=== PATIENT | female | born 1945 | race Caucasian/White ===

== ENCOUNTER → 2018-10-02 19:36 | Outpatient (REF) | payer MEDICARE, OTHER, SELFPAY ==
[2018-10-02 19:48] LABS: Add Manual Diff / Slide Review NO; Basophils Absolute Auto 0 /uL (0-100); Basophils Percent Auto 0.5 % (0-2); Eosinophils Absolute Auto 400 /uL (0-450); Eosinophils Percent Auto 6.5 % (2-4); Hematocrit 44.5 % (36-46); Hemoglobin 14.6 g/dL (12.0-16.0); Lymphocytes Absolute Auto 1500 /uL (1100-4500); Lymphocytes Percent Auto 25.3 % (25-40); Mean Corpuscular HGB Conc 32.8 % (30-36); Mean Corpuscular Hemoglobin 30.3 PG (26-34); Mean Corpuscular Volume 92.5 fL (80-100); Monocytes Absolute Auto 300 /uL (0-900); Monocytes Percent Auto 5.7 % (3-14); Neutrophils Absolute Auto 3800 /uL (1500-7000); Platelet Count 198 X10^3/uL (150-400); Red Blood Cell Count 4.81 X10^6/uL (4.0-5.2); Red Cell Distribution Width 14.1 % (11.6-14.8); White Blood Cell Count 6.1 X10^3/uL (4.5-11.0)
[2018-10-02 19:54] LABS: Alanine Aminotransferase 25 IU/L (9-52); Albumin 4.5 g/dL (3.5-5.0); Albumin Globulin Ratio 1.7 (1.0-2.8); Alkaline Phosphatase 49 U/L (38-126); Aspartate Aminotransferase 26 IU/L (14-36); BUN Creatinine Ratio 22.5 (6-22); Bilirubin Total 0.7 mg/dL (0.2-1.3); Blood Urea Nitrogen 18 mg/dL (7-17); Calcium 9.3 mg/dL (8.4-10.2); Carbon Dioxide 26 mmol/L (22-32); Chloride 104 mmol/L (98-107); Cholesterol 231 mg/dL (140-199); Estimated Glomerular Filt Rate > 60.0 mL/min (>60); Globulin 2.6 g/dL (1.7-4.1); Glucose 79 mg/dL (80-110); HDL Cholesterol 69 mg/dL (40-60); HEMOLYSIS < 15 (0-50); LDL Cholesterol Calculated 150 mg/dL (<100); Potassium 4.2 mmol/L (3.4-5.1); Sodium 139 mmol/L (137-145); Total Protein 7.1 g/dL (6.3-8.2); Triglycerides 60 mg/dL (35-150)
[2018-10-02 19:58] LABS: High Sensitivity CRP - Cardiac 1.1 mg/L (1.0-3.0)
[2018-10-02 20:34] LABS: Erythrocyte Sedimentation Rate 6 MM/HR (0-20)
== END ==
LOC: LAB 19:36
PROVIDERS: Family Provider Specialist; PCP Specialist; Visit Provider Family Medicine Geriatric Medicine
DX: R30.0 Dysuria (principal); I10 Essential (primary) hypertension; M19.90 Unspecified osteoarthritis, unspecified site
CPT/HCPCS: 36415; 80053; 80061; 85025; 85651; 86140

== ENCOUNTER → 2019-06-15 11:36 | Outpatient (CLI) | payer MEDICARE, OTHER, SELFPAY ==
--- NOTE | 2019-06-15 | DI.MG.S_ITS ---
BILATERAL DIGITAL SCREENING MAMMOGRAM 3D/2D WITH CAD: 06/15/2019 CLINICAL: Routine screening. Comparison is made to exams dated: 01/15/2017 mammogram, 03/05/2013 mammogram, and 09/24/2011 mammogram - [facility]. The tissue of both breasts is extremely dense, which lowers the sensitivity of mammography. Current study was also evaluated with a Computer Aided Detection (CAD) system. There are benign calcifications in both breasts. No significant masses, calcifications, or other findings are seen in either breast. There has been no significant interval change. IMPRESSION: There is no mammographic evidence of malignancy. A 1 year screening mammogram is recommended. This exam was interpreted at Station ID: [id number]. NOTE: For mammograms, a report in lay terms will be sent to the patient. Approximately 15% of breast malignancies will not be visualized mammographically. In the management of a palpable breast mass, a negative mammogram must not discourage biopsy of a clinically suspicious lesion. Electronically Signed By: Axel garcia/jacklyn:06/16/2019 08:15:08 letter sent: Normal Exam ACR BI-RADS Category 2: Benign Finding(s) 3342F
== END ==
PROVIDERS: PCP Family Medicine Geriatric Medicine; Visit Provider Family Medicine Geriatric Medicine
DX: Z12.31 Encounter for screening mammogram for malignant neoplasm of breast (principal)
CPT/HCPCS: 77063; 77067

== ENCOUNTER 2019-08-03 10:14 | Day surgery (SDC) | payer MEDICARE, OTHER, SELFPAY ==
[2019-07-21 09:52] VITALS: BMI 24.7
[2019-08-03] VITALS (13 sets, daily range): BP systolic 95–183; BP diastolic 49–88; PULSE 44–76; RESP 10–22; TEMP 36.4–36.9; O2SAT 93–99; BMI 24.7
--- NOTE | 2019-08-03 06:00 | DI.RAD.S_ITS ---
PROCEDURE: XR KNEE LT 1TO2V INDICATIONS: post op TECHNIQUE: 2 view(s) of the knee acquired. COMPARISON: None. FINDINGS: Bones: Patient is status post knee joint arthroplasty. Hardware components are in expected positions. Visualized bony structures are intact. Soft tissues: Overlying postoperative changes are noted. IMPRESSION: Left knee prosthesis in anatomic alignment. Dictated by: Sherron Sams M.D. on 08/03/2019 at 15:42 Approved by: Sherron Sams M.D. on 08/03/2019 at 15:43
[2019-08-03] MEDS: ACETAMINOPHEN 325 MG TABLET 975 MG PO (11:22)
[2019-08-03] MEDS: PREGABALIN 75 MG CAPSULE PO (11:22)
[2019-08-03] MEDS: LACTATED RINGERS 1,000 ML 42 ML IV ×2 (11:41→14:45)
--- NOTE | 2019-08-03 12:09 | PM.PREOP ---
Pre-operative Note Interval Note History & Physical reviewed/Exam performed by Physician: Yes Changes to H&P: No
[2019-08-03] MEDS: MELOXICAM 7.5 MG TABLET 15 MG PO (12:20)
[2019-08-03] MEDS: CEFAZOLIN 2 GM/100 ML FROZ.PIGGY IV (12:59)
[2019-08-03] MEDS: BUPIVACAINE LIPOSOME 266 MG/20 ML VIAL INJ (13:36)
[2019-08-03] MEDS: BUPIVACAINE 0.25% W/ EPI (PF) 10 ML VIAL 60 ML INJ (13:38)
[2019-08-03] MEDS: MORPHINE 4 MG/ML INJ INJ (13:38)
--- NOTE | 2019-08-03 13:49 | SUR.OPER ---
Supine on padded OR bed. Pillow under head, arms secured on padded armboards <90 degree abduction. Safety belt across torso. Non-operative leg secured with tape over blanket over lower leg. Operative leg secured in [employer] positioner.
[2019-08-03] MEDS: TRANEXAMIC ACID 1,000 MG VIAL 1000 MG INJ ×2 (13:55→14:41)
--- NOTE | 2019-08-03 15:09 | PM.OP.1 ---
Operative Date/Time/Diagnoses Date of procedure: 08/03/19 Time of procedure: 14:30 Pre-op diagnosis: Left knee osteoarthritis Post-op diagnosis: same Procedure & Clinicians Procedure: Left total knee replacement Same procedure as scheduled: Yes Indications: The patient has had progressively worsening left knee pain with radiographic changes consistent with arthritis. Non-operative management has failed and the patient has requested total knee replacement. The risks, benefits and alternatives to surgery were discussed with the patient prior to proceeding. Risks discussed included, but were not limited to, failure to relieve pain, stiffness, infection, nerve damage, deep venous thrombosis, pulmonary embolism, stroke, coma, heart attack, permanent paralysis and , as well as the potential need for eventual revision of the prosthetic. Surgeon: Didier Hopkins Maintenance Mechanic Technician: Cheyenne Moreno Click Yes if Unassisted: No Anesthesia Type: Spinal, Sedation and Local Operative Notes Findings: Significant medial and moderate patellofemoral osteoarthritis with relative preservation of the lateral compartment. Closure Type: primary Specimen(s): none sent Prosthetic devices, grafts, tissues, transplants, or devices: Implants used in this procedure were manufactured by the [employer] and [employer] and included the BCS II Journey total knee replacement with a size 4 left cobalt chromium femur, size 3 left non porous tibial base plate, a 10 mm cross-linked polyethylene insert and a 29 mm oval Cece II patella. Applied: implant(s) Estimated Blood Loss (mL): 25 Blood products transfused: none Tourniquet time (min): 51 Procedure in detail: The patient was seen in the pre-operative area, where the left knee was identified as the operative site and this was marked with my initials. The patient received pre-operative antibiotics, and was taken to the operating room and placed on the operative table in the supine position. After satisfactory anesthesia, a instrument repair supervisor out was performed. The left leg was encircled with a tourniquet about the proximal thigh, and the leg was prepared from the toes to the tourniquet with ChloroPrep in the usual fashion and draped through sterile drapes. The leg was elevated and exsanguinated with Eschmark bandage and the tourniquet inflated to 250 mmHg pressure. The knee was approached through an approximately 18 cm incision centered over the patella and carried into the knee through a medial parapatellar arthrotomy. The anterior osteophytes and soft tissues were removed. The rotational landmarks of Quinn's line and the transepicondylar axis were marked on the femur with electrocautery, and intramedullary guide holes for the femur and tibia were created. The distal femoral cut was made in 6 degrees of valgus using the intramedullary guide at the primary cut setting. The proximal tibial cut was then made using the intramedullary guide, taking 9 mm of bone off the less involved side. The extension gap was checked and the rotation of the femoral component confirmed with the gap balancing blocks. The anterior, posterior and chamfer cuts were then made. The posterior osteophytes and soft tissues were then removed. The posterior capsule was injected with part of a mixture of 60 ml 0.25% Marcaine mixed with 20 ml Exparel and 4 mg of morphine for post-operative pain control. The remainder of this mixture was injected into the capsule and subcutaneous tissues during cement curing. The tibia was prepared with the rotation set by an extra medullary guide. Trial tibial and femoral components were then placed and the intercondylar notch cut through the femoral trial. Range of motion was 0-135 degrees, with good stability throughout the range. The patella was then cut to accommodate the patellar prosthetic. There was no need for a lateral release. The trials were then removed, and the femoral hole plugged with a bone plug. The bone was prepared with pulsatile lavage, and dried with a sponge. Cement was applied and the final prosthetics placed. Excess cement was removed during and after cement curing. After confirming there was no extruded cement posteriorly, the final tibial insert was placed. The knee was copiously irrigated and the tourniquet deflated. Hemostasis was obtained. The capsule was closed with interrupted # 2 polyester sutures. The subcutaneous layer was closed with 3-0 Vicryl, and the skin with a running 3-0 V-Lock suture and SteriStrips. An Aquacel Ag dressing was applied and the patient was taken to recovery having tolerated the procedure well. Complications: none Post-operative Condition: stable Disposition: PACU Plan for aftercare: The patient will be maintained on a standard total knee replacement protocol with weight bearing as tolerated. The patient will receive aspirin and sequential compression devices for DVT prophylaxis. The patient will be discharged home when safe for the home environment.
[2019-08-03] MEDS: ONDANSETRON 4 MG/2 ML INJ IV (15:20)
[2019-08-03] MEDS: HYDROMORPHONE 2 MG INJ IV (15:36)
--- NOTE | 2019-08-03 16:13 | SUR.PHASEI ---
initital report given to Ekaterina Chang. Reported that while pts did not report any significant pain to her right knee she has been consistently reporting stomach pain which she attributes to medications which she says she tries to avoid. It was reported to Bernardo, that she received a total of 8 mg of zofran 4 in OR and 4 in PACU. She did some significant belching and then I gave her .05 mg of dilaudid and she managed to throw up approx 30cc of bile like fluid. Shortly thereafter, she stated she felt better and after holding her for the required time after giving a narcotic, she was transferred in stable condition to room 218. Update was given to Ekaterina Chang. No further N/V reported
--- NOTE | 2019-08-03 16:56 | PC.NURSE ---
Addendum entered by Carye Chang R.N. 08/03/19 22:53: Medicated with Reglan and then SL Zofran. Able to take scheduled Tylenol and ASA. Rates left knee pain 3 or 4, refused to try tramadol. Since the SL Zofran, Henny reports nausea mostly gone. Tolerated pudding, crackers, water & denies hunger. Knee drsg remains CDI, CMS intact except for weakness to LLE as well as residual numbness to left toes. Transferred to [facility] to void, when sitting on commode reported I feel very faint, face pale and she leaned forward to put head between knees. Able to transfer back to bed, BP immediately after transfer was 93/43, 2 minutes later retaken 111/61. Pt denied further dizziness, color better to face after rest period. Has been mostly sleeping since that time. Original Note: Post-op note: Nury brought to rm 218 from PACU via bed, VS stable and RA oxygen 95% She is drowsy, dozing, easily wakes to voice, reporting constant nausea which was not relieved by emesis or zofran given in OR/PACU. Had greenish-brown emesis of 75 ml. No other anti-emetics ordered. I paged Dr Hopkins for further orders. LR infusing to IV right hand with no difficulty. NPO due to nausea/emesis, ice chips at bedside. Nury denies any pain to left leg or anywhere else. Left knee drsg CDI, ice packs in place, she reports numbness to left toes & foot but otherwise good sensation to rest of her leg & CMS intact. Pedal pulses strong, legs warm. Wearing SCD's bilaterally. Oriented to room & call button, instructed to call nurse if she needs assistance, fall precautions in place & bed alarm active for safety. Four of patient's own medications sent to pharmacy for lock-up.
[2019-08-03] MEDS: METOCLOPRAMIDE 10 MG/2 ML INJ 5 MG IV (18:34)
[2019-08-03] MEDS: ACETAMINOPHEN 325 MG TABLET 650 MG PO (19:36)
[2019-08-03] MEDS: ONDANSETRON 4 MG ODT PO (19:36)
[2019-08-03] MEDS: LACTATED RINGERS 1,000 ML 125 ML IV (20:51)
[2019-08-03] MEDS: ASPIRIN EC 81 MG TABLET PO (20:55)
[2019-08-04] MEDS: TRAMADOL 50 MG TABLET PO ×2 (00:19→06:59)
[2019-08-04 01:00] VITALS: BP 137/69; PULSE 64; RESP 18; TEMP 36.9; O2SAT 97
[2019-08-04 05:22] LABS: Hemoglobin 11.5 g/dL (12.0-16.0)
[2019-08-04 05:54] VITALS: BP 154/90; PULSE 79; RESP 17; TEMP 36.6; O2SAT 93
--- NOTE | 2019-08-04 07:48 | PM.DS.1 ---
History of Present Illness History of Present Illness Date Patient Seen: 08/04/19 Time Patient Seen: 07:49 Chief complaint: [id number] Narrative: The history and physical are contained in the chart previously completed note. Please refer to that note for this information. Discharge Providers Provider Date of admission: 08/03/19 10:14 Discharge Date: 08/04/19 Primary care physician: Leroy Abbasi MD Consults: 08/03/19 16:25 Consult to Discharge Planning Routine Comment: Consult to Physical Therapy Evaluate & Treat Comment: Physician Instructions: postop TKA protocol Discharge provider: Didier Hopkins MD Summary Hospital Course Discharge Diagnosis: 1. Left knee osteoarthritis 2. Mild post hemorrhagic anemia Hospital Course: Patient was admitted to the hospital and taken directly to the operating room on 08/03/2019. She underwent a left total knee replacement without complication. She was nauseated postoperatively but this improved overnight. She was anxious to be discharged on postoperative day 1. We anticipate she will be able to go home later today after appropriate physical therapy. Status at Discharge Cognitive/behavioral status at discharge: oriented Functional status at discharge: uses cane/walker Overall status at discharge: patient is progressing back to baseline Time Spent with Patient Time spent: Less than 30 minutes Exam Vital Signs (past 8 hours): - 08/04/19 01:00 08/04/19 05:54 Temperature 98.5 F 97.8 F Pulse Rate 64 79 Respiratory Rate 18 17 Blood Pressure 137/69 154/90 H Pulse Oximetry 97 93 Oxygen Delivery Method Room Air Oxygen Flow Rate 0 Narrative Exam Narrative: Left knee wound is dressed with no drainage on the bandage. Calf is soft. Light touch and motion are intact in the left lower extremity. Objective Labs Result Diagrams: 08/04/19 04:51 Labs: Laboratory Results - last 24 hr 08/04/19 04:51 Hgb 11.5 L Hct 34.0 L Discharge Plan Discharge Plan Patient Disposition: Home Discharge orders & Medications Prescriptions: New Aleve 440 mg PO BID 30 Days RF: 0 acetaminophen 325 mg Tablet 650 mg PO TID 30 Days Qty: 180 RF: 0 aspirin 81 mg Tablet,Delayed Release (Dr/Ec) 81 mg PO BID 42 Days Qty: 84 RF: 0 tramadol 50 mg Tablet 50 mg PO Q6H PRN (Reason: Pain, Moderate (4-6)) Qty: 50 RF: 0 Continued multivitamin Capsule 1 cap PO DAILY Qty: 0 RF: 0 Discontinued aspirin 81 mg Tablet,Delayed Release (Dr/Ec) 81 mg PO DAILY PRN (Reason: Pain) RF: 0 ibuprofen [Advil] 200 mg Tablet 200 mg PO Q6H PRN (Reason: Pain) RF: 0 Follow up/Referrals: Leroy Abbasi MD [Primary Care Provider] - Didier Hopkins MD [Physician] - 3-5 Days Diet/Activity/Treatments Diet: Diet as Tolerated and Regular Activity: You may bear weight as tolerated on your left leg. Cold/Heat Therapy: Apply ice for 15 minutes of every hour as needed to the left knee for pain control. Skin/Wound/Dressing Care Report to your healthcare provider any signs of infection, such as:: chills, fever, night sweats, increased pain, unusual drainage and unusual redness Dressing: You may remove the Freddie wrap 3 days after surgery. Leave the deeper dressing in place. You may shower with that deeper dressing on. Leave it in place until follow-up. If the central strip of the deeper dressing becomes saturated with water or blood, please call the office. Visit Report/Discharge Packet Instructions: DI for Knee Replacement Stand Alone Forms: Surgery Discharge Discharge Data Primary Care Provider: Leroy Abbasi
[2019-08-04 08:20] VITALS: BP 149/94; PULSE 74; RESP 16; TEMP 37.1; O2SAT 96
[2019-08-04] MEDS: ASPIRIN EC 81 MG TABLET PO (09:06)
[2019-08-04] MEDS: NAPROXEN 250 MG TABLET 500 MG PO (09:07)
[2019-08-04] MEDS: MULTIVITAMIN 1 TABLET 1 TAB PO (09:07)
[2019-08-04] MEDS: ACETAMINOPHEN 325 MG TABLET 650 MG PO (09:07)
--- NOTE | 2019-08-04 10:24 | PC.NURSE ---
0800- Patient is A&Ox3. She states that her pain is a 4/10 at this time. She has been taking tramadol, tylenol, and naproxen for the discomfort. This has been effective for her pain control. Patient has an farhana wrap with waterproof aquacel dressing under compression bandage. She denies any numbness or tingling to her knee. Pt is a one person assist to get up to bathroom and chair. She was up in the chair earlier and had a bout of dizziness, blood pressure was 140s/90s. She felt better after eating and was able to work with physical therapy. They have cleared her to go home to [place]. Pt [place] a priority boarding pass [place] [address] [place].
--- NOTE | 2019-08-04 11:34 | PT.IIE ---
Current Diagnoses Unilateral primary osteoarthritis, left knee (08/03/19) Surgery Performed Operation Date: 08/03/19 13:15 Actual Procedures p Total Knee Arthroplasty(Left) - Didier Hopkins MD Surgical History (Last Updated 07/21/19 @ 10:22 by Becky Tobar RN) History of bilateral tubal ligation (Acute) History of surgery (Acute) Hx of appendectomy (Acute) Hx of bilateral cataract extraction (Acute ~2015) Hx of cholecystectomy (Acute) Hx of thumb surgery (Acute) Hx of tonsillectomy (Acute) Medical History (Last Updated 07/21/19 @ 10:29 by Becky Tobar RN) BCC (basal cell carcinoma) (Acute) Chronic congestion of paranasal sinus (Acute) Chronic sinusitis (Acute) Easy bruisability (Acute) Hypertension (Acute) Osteoarthritis (Acute) Pneumonia (Acute) Right sided weakness (Acute) TMJ (temporomandibular joint disorder) (Acute ~2014) Physical Therapy Inpatient Evaluation/Re-Eval M1 PT/OT-IP Prior Functional Status Start: 08/04/19 08:14 Freq: NEEDED Status: Active Protocol: Document 08/04/19 09:15 (Rec: 08/04/19 11:34 [email or web address]) Medical Review Prior Functional Status Medical History Reviewed Yes Diet/Fluid Consistency Regular Communication no deficits noted. able to make needs known Mobility and Gait Independent for home and community mobility without using AD. Able to walk a mile a day with her dogs. Pt did use hiking poles in 2014 for two months after her trigeminal surgery. Activities of Daily Living and IADL's independent with ADLs and IADLs without using AD Social History Household Members none Living Arrangements House Number of Floors (Floors) Two Floors Number of Stairs To Enter/Railing? 4 TOYA with R rail and use hiking pole on L side. Pt stays on mainfloor primarily. Home Environment High Toilet,Tub/Shower Home Equipment Front Wheel Walker,Raised Toilet Seat Without Armrests, Shower Seat with Backrest,Hand Held Shower Employment Status Retired Additional Social History Comment Pt lives alone in [place] . She primarily stays on mainfloor and has a roommate lives on 2nd floor and another roommate in the studio right next to the garage. Pt also has 1 dog and 2 kittens who are taken care by her roommates. Pt states she will have her best friend to pick her up upon d/c and stay with her as long as she needed for assistance. Pt also scheduled her outpatient appt starting from 08/09. M2 PT-IP Current Condition Start: 08/04/19 08:14 Freq: NEEDED Status: Active Protocol: Document 08/04/19 09:15 (Rec: 08/04/19 11:34 [email or web address]) Physical Therapy Current Condition Current Condition Evaluation Date 08/04/19 Treatment Diagnosis L TKA, difficulty in walking Onset Date 08/03/19 Weight Bearing Status Weight Bearing Status Weight Bear as Tolerated M3 PT-IP Subjective Start: 08/04/19 08:14 Freq: NEEDED Status: Active Protocol: Document 08/04/19 09:15 (Rec: 08/04/19 11:34 [email or web address]) Subjective Physical Therapy Visit Type Type Initial Evaluation Visit Start Time 09:15 Visit Stop Time 09:50 Total Visit Minutes 35 Number of CASTER HELPER Visits 0 Physical Therapy Visit Comments Patient Comments Pt agreeable to mobilize with PT Patient Goals To return home with her friend and participate outpatient PT . Therapy Pain Assessment Pain When Pain Assessed During Mobility Pain Present Pain Present Pain Reported Location Left Knee Intensity 4 Scale Used Numeric (1 - 10) Description Acute Pain Management Techniques Apply Cold,Distraction,Timing of Activity with Medications M4 PT-IP Mobility and Gait Start: 08/04/19 08:14 Freq: NEEDED Status: Active Protocol: Document 08/04/19 09:15 (Rec: 08/04/19 11:34 [email or web address]) PT-Bed Mobility Assessment Supine to Sit Supine to Sit Standby Assistance Sit to Supine Sit to Supine Standby Assistance Scooting Scooting to Edge of Bed Standby Assistance Scooting Up and Down in Bed Standby Assistance PT-Transfer Assessment Sit to and From Stand Sit to and from Stand Standby Assistance,Contact Guard Assistance,Use of Upper Extremities Equipment Transfer Assistive Device Gait Belt,Front Wheeled Walker Orthotic/Prosthetic Devices or Brace: No Transfers Transfer Destination Bed Transfer Technique amb with FWW Transfer Ability Level of Assist Standby Assistance,Contact Guard Assistance Comments Mobility Comments Pt was in bed upon assessment. Pt requested to mobilize since she wants to go home. Pt completed supine to long sit and was able to use RLE to unweight her LLE for pivoting towards EOB on R side. She then sat EOB without with UE to push off. She stood up after with min A for the first attempt and performed lateral weight shifting with FWW CGA. Pt then returned to bed with SBA for sit to supine by using gait belt to pivot her LLE. She was able to scoot up/down and laterally independently afterwards to position herself comfortably. Call light was placed within reach. Gait Assessment Gait Gait Assistance Required: Contact Guard Assist Distance (Feet) 160 Able to Maintain Weight Bearing Status Yes During Gait Assistive Devices Assistive Device Gait Belt,Front Wheeled Walker Orthotic/Prosthetic Devices or Brace: No Gait Deviations General Gait Pattern Antalgic,Decreased Stride Length,Decreased Feet Clearance,Step-to Gait Factors Limiting Gait Function Factors Limiting Gait Function Decreased Activity Tolerance, Decreased Strength,Limited Range of Motion,Pain,Poor Balance Comments Gait Comments Pt amb from EOB on R side to hallway for 80 feet with FWW CGA. Pt initially took small step to gait but able to progress to small step over gait towards after 50 feet. Pt did need cues to maintain upright posture. She reports pain increased to 4/10 during stance phase of LLE. She was then w/c to [facility] for stairs climbing and w/c back to [facility] and amb back to her room for another 80 feet with CGA and FWW. Pt was very steady and no signs of LOB. Stair Climbing Assessment Evaluation Level of Assist On Stairs Minimal Assistance Devices Stair Climbing Assistive Devices Right Railing Technique/Endurance Stair Climbing Direction Ascend and Descend Stair Climbing Technique Step to Step Number of Steps Climbed 3 Query Text: Stair Climbing Set # Repetitions (reps) 2 Comments Stair Climbing Comments Pt understands up with good and down with bad techniques for stair climbing. She was able to use PT's CLIENT PORTFOLIO MANAGER on her LUE as her hiking pole with RUE on rail to climb step. Pt used step to pattern and appeared safe and steady. PT-Balance Assessment Sitting Balance and Reactions Static Sitting Balance Ability Good Dynamic Sitting Balance Ability Good Standing Balance and Reactions Static Standing Balance Ability Good Dynamic Standing Balance Ability Good Device Used FWW M5 PT-IP Objective Assessments Start: 08/04/19 08:14 Freq: NEEDED Status: Active Protocol: Document 08/04/19 09:15 HH (Rec: 12/18/19 11:34 [email or web address]) Orientation Orientation/Cognition Level of Alertness Alert Orientation Name,Age,Birthday,Month,Date, Year,Day of Week,Place, Situation Language Function Ability No Deficits Noted Safety Awareness Understands Safety Issues Memory Description No Deficits Noted Gross Range of Motion Upper Extremity ROM Assessment Within Functional Limits Lower Extremity ROM Assessment Left Impaired Impairments 8- 85 knee AROM Strength Upper Extremity Strength Assessment Within Functional Limits Lower Extremity Strength Assessment Left Impaired Hip 4/5 Knee 4-/5 Coordination Assessment Gross Coordination Gross Coordination WNL Sensation Assessment Sensation Gross Sensation Right LE Impaired Light Touch Impaired Comments Sensation Comments Pt reports her lateral aspect of R LE has decreased sensation to touch and pressure since her surgery from 2014. Muscle Tone Muscle Tone WNL Yes M6 PT-IP Treatment Start: 08/04/19 08:14 Freq: NEEDED Status: Active Protocol: Document 08/04/19 09:15 (Rec: 08/04/19 11:34 [email or web address]) Physical Therapy Treatment Exercises Exercises Ankle Pumps,Gluteal Sets,Quad Sets,Heel Slides Education Education Provided Precautions,Weight Bearing Status,Post-Op Packet,Safety M7 PT-IP Assessment and Plan Start: 08/04/19 08:14 Freq: NEEDED Status: Active Protocol: Document 08/04/19 09:15 (Rec: 08/04/19 11:34 [email or web address]) PT Summary Assessment and Plan Potential Rehabilitation Potential Excellent Status of Condition at Evaluation Stable Summary Impairments Pain,ROM,Strength,Balance,Bed Mobility,Transfers,Gait, Activity Tolerance Progress Towards Goals Safe For Discharge Assessment Summary Pt is a low complexity s/p POD 1 L TKA. Pt did fairly well for bed mobility, transfers, gait training and stair climbing with CGA/SBA & FWW. She has good understanding of her current status and capability. Her VS and pain are both stable as well BP= 150s/70s pre and post mobility . She is safe to d/c at this point with her best friend to assist 24/7 as long as she needed, along with outpatient PT to improve mobility and strength. Frequency of Treatment Frequency Of Treatment Discharge Recommendations To Nursing Amount of Assist Needed 1 Person Assist Discharge Recommendations PT Discharge Recommendations Home with Assistance, Outpatient PT
--- NOTE | 2019-08-04 12:25 | CM.DANOTE ---
DCP Brief Assessment Note Per Ortho MD, pt medically stable to d/c home pending final PT eval and recommendations. Per PT, pt resides on [address] with 2 roommates and is Independent with ADL's and does not use DME at baseline. Pt with plan of best friend to also stay with the pt and provide assist for however long is needed. Pt set up for outpt PT already for after d/c. Per PT, recommending safe d/c home with assist and outpt PT. Per RN, pt's best friend to provide transport home today and no concerns at this time and priority [place] pass [place] [address] [place]. Plan: Patient to d/c home today via friend POV and ferry back to [place] and friend to stay and assist. No SW needs at this time. WILIAM Reardon
== END 2019-08-04 14:00 | disposition home or self-care (01) ==
LOC: AC 08-04 13:28 → OR 08-04 14:45
PROVIDERS: PCP Family Medicine Geriatric Medicine; Visit Provider Orthopaedic Surgery
PROC: 0SRD0JZ Replacement of Left Knee Joint with Synthetic Substitute, Open Approach (ICD-10-PCS; CPT 27447; principal; 2019-08-03 13:15)
DX: M17.12 Unilateral primary osteoarthritis, left knee (principal); D50.0 Iron deficiency anemia secondary to blood loss (chronic); R11.0 Nausea
CPT/HCPCS: 27447; 36415; 73560; 85014; 85018; 97161; 97530; C1776; C9290; J0690; J1170; J2250; J2270; J2405; J2704; J2765; J3010

== ENCOUNTER → 2021-08-03 10:00 | Outpatient (CLI) | payer MEDICARE, OTHER, SELFPAY ==
[2019-08-03 16:27] VITALS: BMI 24.7
--- NOTE | 2021-08-03 | DI.MG.S_ITS ---
BILATERAL DIGITAL SCREENING MAMMOGRAM 3D/2D WITH CAD: 08/03/2021 CLINICAL: Routine screening. Comparison is made to exams dated: 06/15/2019 mammogram, 01/15/2017 mammogram, and 03/05/2013 mammogram - [facility]. The tissue of both breasts is extremely dense, which lowers the sensitivity of mammography. Current study was also evaluated with a Computer Aided Detection (CAD) system. There are grouped heterogeneous calcifications in the right breast at 12 o'clock middle depth. These are more prominent and increased in size. There is subtle possible architectural distortion associated with the calcifications. No other significant masses, calcifications, or other findings are seen in either breast. IMPRESSION: INCOMPLETE: NEEDS ADDITIONAL IMAGING EVALUATION The grouped heterogeneous calcifications in the right breast are indeterminate. Diagnostic mammogram for additional views to include mediolateral and spot magnification views is recommended. This exam was interpreted at Station ID: [id number]. NOTE: For mammograms, a report in lay terms will be sent to the patient. Approximately 15% of breast malignancies will not be visualized mammographically. In the management of a palpable breast mass, a negative mammogram must not discourage biopsy of a clinically suspicious lesion. Electronically Signed By: Axel Jackson M.D. aty/:08/03/2021 12:12:22 letter sent: Additional Imaging Needed ACR BI-RADS Category 0: Incomplete 3340F
== END ==
PROVIDERS: PCP Family Medicine; Referring Provider Family Medicine; Visit Provider Family Medicine
DX: Z12.31 Encounter for screening mammogram for malignant neoplasm of breast (principal)
CPT/HCPCS: 77063; 77067

== ENCOUNTER → 2022-09-13 10:58 | Outpatient (CLI) | payer MEDICARE, OTHER, SELFPAY ==
[2019-08-03 16:27] VITALS: BMI 24.7
--- NOTE | 2022-09-13 | DI.MG.S_ITS ---
BILATERAL DIGITAL DIAGNOSTIC MAMMOGRAM 3D/2D: 09/13/2022 CLINICAL: Patient returns for late callback of magnification views of microcalcifications in the right breast, due for bilateral. Comparison is made to exams dated: 08/03/2021 mammogram, 06/15/2019 mammogram, and 01/15/2017 mammogram - [facility]. Both breasts are extremely dense, which lowers the sensitivity of mammography (category d />75% glandular tissue). There are stable benign grouped calcifications in the right breast at 12 o'clock middle depth, seen dating back to at least 2018. No other significant masses, calcifications, or other findings are seen in either breast. IMPRESSION: BENIGN There is no mammographic evidence of malignancy. Return to annual mammogram screening schedule is recommended. Based on the Tyrer Cuzick model (a risk assessment model) the patient's lifetime risk is 4.4% and her 10 year risk is 0.0%. According to the ACR, ACS, and NCCN guidelines, an annual breast MRI exam along with mammogram is recommended if the patient's lifetime risk is 20% or greater. This exam was interpreted at Station ID: [id number]. NOTE: For mammograms, a report in lay terms will be sent to the patient. Approximately 15% of breast malignancies will not be visualized mammographically. In the management of a palpable breast mass, a negative mammogram must not discourage biopsy of a clinically suspicious lesion. Electronically Signed By: Brandon Winter M.D. lc/:09/13/2022 13:15:59 letter sent: Normal Exam ACR BI-RADS Category 2: Benign Finding(s) 3342F
== END ==
PROVIDERS: PCP Family Medicine; Referring Provider Family Medicine; Visit Provider Family Medicine
DX: R92.8 Other abnormal and inconclusive findings on diagnostic imaging of breast (principal); R92.1 Mammographic calcification found on diagnostic imaging of breast
CPT/HCPCS: 77066; G0279

== ENCOUNTER → 2023-08-28 11:35 | Outpatient (CLI) | payer MEDICARE, OTHER, SELFPAY ==
[2019-08-03 16:27] VITALS: BMI 24.7
--- NOTE | 2023-08-28 | DI.MG.S_ITS ---
BILATERAL DIGITAL SCREENING MAMMOGRAM 3D/2D WITH CAD: 08/28/2023 CLINICAL: Routine screening. Comparison is made to exams dated: 09/13/2022 mammogram, 08/03/2021 mammogram, and 06/15/2019 mammogram - [facility]. Both breasts are extremely dense, which lowers the sensitivity of mammography (category d />75% glandular tissue). Current study was also evaluated with a Computer Aided Detection (CAD) system. There are benign calcifications in both breasts. No significant masses, calcifications, or other findings are seen in either breast. There has been no significant interval change. IMPRESSION: BENIGN There is no mammographic evidence of malignancy. A 1 year screening mammogram is recommended. Based on the Tyrer Cuzick model (a risk assessment model) the patient's lifetime risk is 3.8% and her 10 year risk is 0.0%. According to the ACR, ACS, and NCCN guidelines, an annual breast MRI exam along with mammogram is recommended if the patient's lifetime risk is 20% or greater. This exam was interpreted at Station ID: [id number]. NOTE: For mammograms, a report in lay terms will be sent to the patient. Approximately 15% of breast malignancies will not be visualized mammographically. In the management of a palpable breast mass, a negative mammogram must not discourage biopsy of a clinically suspicious lesion. Electronically Signed By: Derek ely/jacklyn:08/28/2023 13:01:49 letter sent: Normal Exam ACR BI-RADS Category 2: Benign Finding(s) 3342F
== END ==
LOC: MAMMO 11:37
PROVIDERS: PCP Family Medicine; Referring Provider Family Medicine; Visit Provider Family Medicine
DX: Z12.31 Encounter for screening mammogram for malignant neoplasm of breast (principal); R92.343 Mammographic extreme density, bilateral breasts
CPT/HCPCS: 77063; 77067

== ENCOUNTER → 2023-10-01 14:42 | Outpatient (CLI) | payer MEDICARE, OTHER, SELFPAY ==
[2019-08-03 16:27] VITALS: BMI 24.7
== END ==
PROVIDERS: PCP Family Medicine; Visit Provider Specialist
DX: N95.2 Postmenopausal atrophic vaginitis (principal); R31.0 Gross hematuria; R30.0 Dysuria; R39.9 Unspecified symptoms and signs involving the genitourinary system
CPT/HCPCS: 51798; 81002; 87086; 99215

== ENCOUNTER → 2023-12-30 09:55 | Outpatient (CLI) | payer MEDICARE, OTHER, SELFPAY ==
[2019-08-03 16:27] VITALS: BMI 24.7
== END ==
PROVIDERS: PCP Family Medicine; Visit Provider Specialist
DX: R39.9 Unspecified symptoms and signs involving the genitourinary system (principal)
CPT/HCPCS: 87086

== ENCOUNTER → 2024-01-15 11:09 | Outpatient (CLI) | payer MEDICARE, OTHER, SELFPAY ==
[2019-08-03 16:27] VITALS: BMI 24.7
== END ==
PROVIDERS: PCP Family Medicine; Visit Provider Specialist
DX: R39.9 Unspecified symptoms and signs involving the genitourinary system (principal)
CPT/HCPCS: 87086